=== PATIENT | female | born 1955 | race Caucasian/White ===

== ENCOUNTER 2016-07-10 20:39 | Emergency (ER) | payer MEDICAID ==
[~2016-07-10] VITALS: Ht 157.5 cm; Wt 72.6 kg
[~2016-07-10 20:39] MED LIST: CETI10TA93 PO; NOR10T PO; PHEN100C70 PO
[2016-07-10 21:30] LABS: Basophils # (auto) 0.1 uL; Basophils % (auto) 0.8 % (0.0-2.0); Eosinophils # (auto) 0.2 uL; Eosinophils % (auto) 3.5 % (0.0-7.0); Hematocrit 41.5 % (36.0-46.0); Hemoglobin 13.9 g/dL (12.2-16.2); Lymphocytes # (auto) 2.2 uL; Lymphocytes % (auto) 33.6 % (10.0-50.0); Mean Corpuscular Hemoglobin 30.1 pg (28.0-32.0); Mean Corpuscular Hgb Conc. 33.6 g/dL (32.0-36.0); Mean Corpuscular Volume 89.4 fL (80.0-100.0); Mean Platelet Volume 7.3 fL (7.4-10.4); Monocytes # (auto) 0.6 uL; Monocytes % (auto) 8.9 % (0.0-12.0); Neutrophils # (auto) 3.5 uL; Neutrophils % (auto) 53.2 % (37.0-80.0); Platelet Count (auto) 263 10^3/uL (140-450); Red Cell Distribution Width 14.4 % (11.6-16.0); White Blood Cell 6.6 10^3/uL (4.4-10.8)
[2016-07-10 21:58] LABS: Albumin 3.9 g/dL (3.4-5.0); Alkaline Phosphatase 114 U/L (45-117); Anion Gap 9 (5-15); Aspartate Aminotransferase 18 U/L (15-37); BUN/Creatinine Ratio 13.3; Bilirubin, Total 0.2 mg/dL (0.2-1.0); Blood Urea Nitrogen 12 mg/dL (7-18); Calcium 8.6 mg/dL (8.5-10.1); Carbon Dioxide 28 mmol/L (21-32); Chloride 109 mmol/L (98-107); GFR African American 82 mL/min; GFR Non-African American 67 mL/min; Glucose 99 mg/dL (74-106); Magnesium 2.8 mg/dL (1.6-2.6); Potassium 4.4 mmol/L (3.5-5.1); Sodium 146 mmol/L (136-145); Total Protein 7.9 g/dL (6.4-8.2)
[2016-07-11 05:37] LABS: Urine Bilirubin Negative (Negative); Urine Color Yellow (Yellow); Urine Glucose Normal (Normal); Urine Ketone Negative (Negative); Urine Mucus FEW (None Seen); Urine Nitrite Negative (Negative); Urine RBC 21 /hpf (0 - 4); Urine Squamous Epithelial Cell FEW /hpf (<5); Urine Urobilinogen Normal (Negative)
[2016-07-11 05:49] LABS: Urine Blood 1+ /uL (Negative)
[2016-07-11 06:00] VITALS: BP 107/70
[2016-07-11] MEDS ORDERED: HYDROcodone-ACET 5/325MG TAB PO ONE (06:30)
== END 2016-07-11 07:42 | disposition home or self-care (01) ==
LOC: EDBD 20:39 → ER 20:48
DX: S43.402A Unspecified sprain of left shoulder joint, initial encounter (principal); S16.1XXA Strain of muscle, fascia and tendon at neck level, initial encounter; N39.0 Urinary tract infection, site not specified; R07.89 Other chest pain; Z88.8 Allergy status to other drugs, medicaments and biological substances; Z88.0 Allergy status to penicillin; V49.9XXA Car occupant (driver) (passenger) injured in unspecified traffic accident, initial encounter; Y93.89 Activity, other specified; Y99.8 Other external cause status; Y92.488 Other paved roadways as the place of occurrence of the external cause
CPT/HCPCS: 36415; 71020; 72040; 73030; 80053; 81001; 83735; 84484; 85025; 93005

== ENCOUNTER 2016-07-17 07:03 | Emergency (ER) | payer MEDICAID ==
[~2016-07-17] VITALS: Ht 154.9 cm; Wt 81.6 kg
[2016-07-17 08:40] VITALS: BP 128/77
== END 2016-07-17 09:41 | disposition home or self-care (01) ==
LOC: ER 07:10
DX: M47.812 Spondylosis without myelopathy or radiculopathy, cervical region (principal); Z88.0 Allergy status to penicillin; Z91.011 Allergy to milk products; Z88.8 Allergy status to other drugs, medicaments and biological substances; Z87.442 Personal history of urinary calculi
CPT/HCPCS: 72125

== ENCOUNTER 2016-11-22 18:27 | Inpatient (IN) | payer MEDICAID ==
[~2016-11-22] VITALS: Ht 165.1 cm; Wt 91.9 kg
[2016-11-22] MEDS ORDERED: ACETAMINOPHEN 325 MG TAB PO ONE (18:45)
[2016-11-22 19:03] LABS: Basophils # (auto) 0 uL; Basophils % (auto) 0.2 % (0.0-2.0); CONDITION Y; Eosinophils # (auto) 0 uL; Hematocrit 42.1 % (36.0-46.0); Hemoglobin 14.5 g/dL (12.2-16.2); Lymphocytes # (auto) 1.1 uL; Lymphocytes % (auto) 10.6 % (10.0-50.0); Mean Corpuscular Hemoglobin 31.9 pg (28.0-32.0); Mean Corpuscular Hgb Conc. 34.5 g/dL (32.0-36.0); Mean Corpuscular Volume 92.4 fL (80.0-100.0); Mean Platelet Volume 7.5 fL (7.4-10.4); Monocytes # (auto) 1.2 uL; Monocytes % (auto) 11.7 % (0.0-12.0); Neutrophils # (auto) 7.7 uL; Neutrophils % (auto) 77.5 % (37.0-80.0); Platelet Count (auto) 246 10^3/uL (140-450); Red Cell Distribution Width 14.4 % (11.6-16.0)
[2016-11-22 19:19] LABS: Urine Bilirubin Negative (Negative); Urine Color Yellow (Yellow); Urine Glucose Normal (Normal); Urine Ketone TRACE (Negative); Urine RBC 36 /hpf (0 - 4); Urine Squamous Epithelial Cell FEW /hpf (<5); Urine Urobilinogen Normal (Negative); Urine WBC Clumps PRESENT /hpf (None Seen)
[2016-11-22 19:28] LABS: Urine Blood 2+ /uL (Negative); Urine Nitrite POSITIVE (Negative)
[2016-11-22 19:29] LABS: Albumin 3.8 g/dL (3.4-5.0); Calcium 8.7 mg/dL (8.5-10.1)
[2016-11-22 19:31] LABS: BUN/Creatinine Ratio 15.5; Potassium 4.1 mmol/L (3.5-5.1)
[2016-11-22] MEDS ORDERED: SODIUM CHLORIDE 0.9% 1,000 ML IV ONE ×2 (19:31)
[2016-11-22 19:36] LABS: Bilirubin, Total 0.8 mg/dL (0.2-1.0)
[2016-11-22] MEDS ORDERED: LEVOFLOXACIN 750MG 150 ML IV ONE (19:45)
[2016-11-22] MEDS ORDERED: ENOXAPARIN SOD 40 MG/0.4 ML SYRINGE SC SCH (21:44)
[2016-11-22] MEDS ORDERED: ONDANSETRON HCL 4 MG/2 ML VIAL IV PRN (21:45)
[2016-11-22] MEDS ORDERED: KETOROLAC TROMETH 30 MG/ML 1ML VIAL IV PRN (21:45)
[2016-11-22] MEDS: PHENYTOIN SODIUM 100 MG CAP PO SCH (22:21)
[2016-11-22] MEDS: FAMOTIDINE (10MG/ML) 2ML VL IV SCH (22:21)
[2016-11-22 23:05] VITALS: BP 101/66
[2016-11-23] MEDS: SODIUM CHLORIDE 0.9% 1,000 ML IV SCH ×4 (00:10→21:41)
[2016-11-23] MEDS: ACETAMINOPHEN 500 MG TAB PO PRN ×4 (00:36→21:08)
[2016-11-23 04:54] VITALS: BP 120/56
[2016-11-23 06:12] LABS: Basophils # (auto) 0 uL; Basophils % (auto) 0.3 % (0.0-2.0); CONDITION Y; DEFINITIVE SEE PRINTOUT; Eosinophils # (auto) 0 uL; Hematocrit 40.4 % (36.0-46.0); Hemoglobin 14.1 g/dL (12.2-16.2); Lymphocytes # (auto) 1.4 uL; Lymphocytes % (auto) 13.5 % (10.0-50.0); Mean Corpuscular Hemoglobin 32.5 pg (28.0-32.0); Mean Corpuscular Volume 92.9 fL (80.0-100.0); Mean Platelet Volume 8.2 fL (7.4-10.4); Monocytes # (auto) 1.7 uL; Monocytes % (auto) 16.8 % (0.0-12.0); Neutrophils % (auto) 69.4 % (37.0-80.0); Platelet Count (auto) 141 10^3/uL (140-450); Red Cell Distribution Width 14.2 % (11.6-16.0); White Blood Cell 10.1 10^3/uL (4.4-10.8)
[2016-11-23 06:31] LABS: Calcium 7.8 mg/dL (8.5-10.1); Potassium 4.6 mmol/L (3.5-5.1)
[2016-11-23 06:34] LABS: Bilirubin, Total 0.6 mg/dL (0.2-1.0)
[2016-11-23 08:00] VITALS: BP 114/63
[2016-11-23 08:52] VITALS: BP 114/63
[2016-11-23] MEDS: FAMOTIDINE (10MG/ML) 2ML VL IV SCH ×2 (09:26→21:41)
[2016-11-23] MEDS: PHENYTOIN SODIUM 100 MG CAP PO SCH ×2 (09:26→21:41)
[2016-11-23] MEDS ORDERED: LEVOFLOXACIN 500MG 100 ML IV SCH (10:00)
[2016-11-23] MEDS ORDERED: PROMETHAZINE HCL 25 MG/ML 1ML IV PRN (11:00)
[2016-11-23] MEDS ORDERED: HYDROmorphone HCL 2 MG/ML VL IV PRN (11:00)
[2016-11-23 12:31] VITALS: BP 130/78
[2016-11-23 17:01] VITALS: BP 109/60
[2016-11-23 22:00] VITALS: BP 122/68
[2016-11-24] MEDS: SODIUM CHLORIDE 0.9% 1,000 ML IV SCH ×3 (04:58→20:27)
[2016-11-24 05:00] VITALS: BP 122/71
[2016-11-24 06:04] LABS: Basophils # (auto) 0 uL; Basophils % (auto) 0.3 % (0.0-2.0); CONDITION Y; Eosinophils # (auto) 0 uL; Eosinophils % (auto) 0.1 % (0.0-7.0); Hematocrit 33.5 % (36.0-46.0); Hemoglobin 11.4 g/dL (12.2-16.2); Lymphocytes # (auto) 1.1 uL; Lymphocytes % (auto) 16.1 % (10.0-50.0); Mean Corpuscular Hemoglobin 31.6 pg (28.0-32.0); Mean Corpuscular Hgb Conc. 34.2 g/dL (32.0-36.0); Mean Corpuscular Volume 92.6 fL (80.0-100.0); Mean Platelet Volume 7.6 fL (7.4-10.4); Monocytes % (auto) 14.7 % (0.0-12.0); Neutrophils # (auto) 4.6 uL; Neutrophils % (auto) 68.8 % (37.0-80.0); Platelet Count (auto) 185 10^3/uL (140-450); Red Cell Distribution Width 14.3 % (11.6-16.0); White Blood Cell 6.7 10^3/uL (4.4-10.8)
[2016-11-24 06:13] LABS: INR 1.02 (0.9-1.15); Partial Thromboplastin Time 32.7 sec (22.64-33.71); Prothrombin Time 11.1 sec (9.37-12.3)
[2016-11-24 06:27] LABS: Potassium 3.9 mmol/L (3.5-5.1)
[2016-11-24 06:38] LABS: Albumin 2.6 g/dL (3.4-5.0); BUN/Creatinine Ratio 20.9; Bilirubin, Total 0.3 mg/dL (0.2-1.0); Calcium 7.9 mg/dL (8.5-10.1); Total Protein 6.3 g/dL (6.4-8.2)
[2016-11-24 08:27] VITALS: BP 112/68
[2016-11-24] MEDS: LEVOFLOXACIN 500MG 100 ML IV SCH (10:03)
[2016-11-24] MEDS: PHENYTOIN SODIUM 100 MG CAP PO SCH ×2 (10:03→21:34)
[2016-11-24] MEDS: FAMOTIDINE (10MG/ML) 2ML VL IV SCH ×2 (10:04→21:34)
[2016-11-24 12:32] VITALS: BP 113/74
[2016-11-24 16:59] VITALS: BP 113/61
[2016-11-24] MEDS: ACETAMINOPHEN 500 MG TAB PO PRN (18:58)
[2016-11-24 20:00] VITALS: BP 104/61
[2016-11-24 22:00] VITALS: BP 104/61
[2016-11-25] MEDS: SODIUM CHLORIDE 0.9% 1,000 ML IV SCH ×3 (04:55→21:24)
[2016-11-25 05:42] VITALS: BP 126/80
[2016-11-25 09:00] VITALS: BP 135/89
[2016-11-25] MEDS ORDERED: ONDANSETRON HCL 4 MG/2 ML VIAL ONE (10:23)
[2016-11-25] MEDS ORDERED: fentaNYL CITRATE 100 MCG/2 ML VL ONE (10:23)
[2016-11-25] MEDS ORDERED: MIDAZOLAM HCL 1MG/1ML-2 ML VIAL ONE (10:23)
[2016-11-25] MEDS ORDERED: PROPOFOL 10 MG/ML 20 ML IV ONE ×3 (10:23→12:00)
[2016-11-25] MEDS: FAMOTIDINE (10MG/ML) 2ML VL IV SCH ×2 (11:23→21:24)
[2016-11-25] MEDS: LEVOFLOXACIN 500MG 100 ML IV SCH (11:24)
[2016-11-25] MEDS ORDERED: HYDROmorphone HCL 2 MG/ML VL IV PRN (12:30)
[2016-11-25] MEDS ORDERED: METOCLOPRAMIDE HCL 5MG/ml INJ 2ml VIAL IV ONE (12:30)
[2016-11-25 17:00] VITALS: BP 123/74
[2016-11-25] MEDS: PHENYTOIN SODIUM 100 MG CAP PO SCH ×2 (17:05→21:24)
[2016-11-25 21:30] VITALS: BP 121/78
[2016-11-26 05:00] VITALS: BP 137/81
[2016-11-26] MEDS: SODIUM CHLORIDE 0.9% 1,000 ML IV SCH ×2 (05:44→09:58)
[2016-11-26 09:00] VITALS: BP 130/75
[2016-11-26] MEDS: PHENYTOIN SODIUM 100 MG CAP PO SCH (09:57)
[2016-11-26] MEDS: FAMOTIDINE (10MG/ML) 2ML VL IV SCH ×2 (09:57→10:19)
[2016-11-26] MEDS: LEVOFLOXACIN 500MG 100 ML IV SCH (09:58)
[2016-11-26 11:20] VITALS: BP 130/75
[2016-11-26 12:38] VITALS: BP 155/83
== END 2016-11-26 13:30 | disposition home or self-care (01) | DRG 710 ==
LOC: EDBD 18:27 → ER 18:31 → OVERFLOW 18:32 → WEST WING 23:00
PROVIDERS: ADMIT Family Medicine; ATTEND Internal Medicine
PROC: 0TC68ZZ Extirpation of Matter from Right Ureter, Via Natural or Artificial Opening Endoscopic (ICD-10-PCS; principal; 2016-11-25 10:58)
DX: A41.9 Sepsis, unspecified organism (principal); E43 Unspecified severe protein-calorie malnutrition; G93.41 Metabolic encephalopathy; M41.9 Scoliosis, unspecified; N39.0 Urinary tract infection, site not specified; D64.9 Anemia, unspecified; B96.1 Klebsiella pneumoniae [K. pneumoniae] as the cause of diseases classified elsewhere; G40.909 Epilepsy, unspecified, not intractable, without status epilepticus; I51.7 Cardiomegaly; J98.11 Atelectasis; F32.9 Major depressive disorder, single episode, unspecified; K57.10 Diverticulosis of small intestine without perforation or abscess without bleeding; M43.16 Spondylolisthesis, lumbar region; N13.6 Pyonephrosis; F41.9 Anxiety disorder, unspecified; Z68.33 Body mass index [BMI] 33.0-33.9, adult; Z88.0 Allergy status to penicillin; Z88.8 Allergy status to other drugs, medicaments and biological substances; Z91.011 Allergy to milk products; Z82.49 Family history of ischemic heart disease and other diseases of the circulatory system; Z83.3 Family history of diabetes mellitus; Z87.442 Personal history of urinary calculi
CPT/HCPCS: 36415; 51702; 70450; 71010; 74176; 80053; 81001; 82962; 83605; 85025; 85610; 85730; 87040; 87086; 87088; 87186; 93005; 96361; 96372; 96374; J1956; J2250; J2405; J2704; J3490

== ENCOUNTER 2017-11-18 18:52 | Emergency (ER) | payer MEDICAID ==
[~2017-11-18] VITALS: Ht 154.9 cm; Wt 84.8 kg
[~2017-11-18 18:52] MED LIST changes: -CETI10TA93 PO
[2017-11-18 19:20] VITALS: BP 126/88
== END 2017-11-19 01:23 | disposition left against medical advice (07) ==
LOC: ER 18:52
DX: M25.562 Pain in left knee (principal); Z53.21 Procedure and treatment not carried out due to patient leaving prior to being seen by health care provider
CPT/HCPCS: 73562

== ENCOUNTER 2017-11-27 13:09 | Emergency (ER) | payer MEDICAID ==
[~2017-11-27] VITALS: Ht 154.9 cm; Wt 82.1 kg
[2017-11-27 13:27] VITALS: BP 137/90
== END 2017-11-27 15:00 | disposition home or self-care (01) ==
LOC: ER 13:09
DX: S00.03XA Contusion of scalp, initial encounter (principal); Z88.0 Allergy status to penicillin; Z91.011 Allergy to milk products; X58.XXXA Exposure to other specified factors, initial encounter; Y93.89 Activity, other specified; Y99.8 Other external cause status; Y92.89 Other specified places as the place of occurrence of the external cause

== ENCOUNTER 2017-12-15 17:05 | Emergency (ER) | payer MEDICAID ==
[~2017-12-15] VITALS: Ht 154.9 cm; Wt 82.1 kg
[2017-12-15 17:30] VITALS: BP 128/80
[2017-12-15] MEDS ORDERED: CLINDAMYCIN 600 MG/4 ML VL IM ONE (19:15)
== END 2017-12-15 19:56 | disposition home or self-care (01) ==
LOC: ER 17:14
DX: L02.811 Cutaneous abscess of head [any part, except face] (principal); J45.909 Unspecified asthma, uncomplicated; Z87.891 Personal history of nicotine dependence; Z88.0 Allergy status to penicillin; Z88.1 Allergy status to other antibiotic agents; Z91.011 Allergy to milk products; Z87.442 Personal history of urinary calculi

== ENCOUNTER 2018-03-20 22:38 | Emergency (ER) | payer MEDICAID ==
[~2018-03-20] VITALS: Ht 154.9 cm; Wt 84.8 kg
[2018-03-20 23:39] LABS: Basophils # (auto) 0 uL; Basophils % (auto) 0.7 % (0.0-2.0); Eosinophils # (auto) 0.4 uL; Eosinophils % (auto) 5.7 % (0.0-7.0); Hematocrit 41.9 % (36.0-46.0); Hemoglobin 14.3 g/dL (12.2-16.2); Lymphocytes % (auto) 47.6 % (10.0-50.0); Mean Corpuscular Hemoglobin 31.1 pg (28.0-32.0); Mean Corpuscular Hgb Conc. 34.1 g/dL (32.0-36.0); Monocytes # (auto) 0.7 uL; Monocytes % (auto) 10.5 % (0.0-12.0); Neutrophils # (auto) 2.3 uL; Neutrophils % (auto) 35.5 % (37.0-80.0); Nucleated Red Blood Cells % 0.1 %; Platelet Count (auto) 214 10^3/uL (140-450); Red Cell Distribution Width 14.1 % (11.8-14.3); White Blood Cell 6.3 10^3/uL (4.4-10.8)
[2018-03-20 23:53] LABS: Alanine Aminotransferase 26 U/L (13-56); Albumin 3.8 g/dL (3.4-5.0); Anion Gap 10 (5-15); Aspartate Aminotransferase 21 U/L (15-37); Calcium 8.5 mg/dL (8.5-10.1); Carbon Dioxide 24 mmol/L (21-32); Chloride 109 mmol/L (98-107); GFR African American 89 mL/min; GFR Non-African American 74 mL/min; Glucose 108 mg/dL (74-106); Magnesium 2.6 mg/dL (1.6-2.6); Potassium 3.7 mmol/L (3.5-5.1); Sodium 143 mmol/L (136-145)
[2018-03-20 23:58] LABS: Alkaline Phosphatase 110 U/L (45-117); BUN/Creatinine Ratio 15.7; Bilirubin, Total 0.2 mg/dL (0.2-1.0); Blood Urea Nitrogen 13 mg/dL (7-18); Total Protein 8.1 g/dL (6.4-8.2)
[2018-03-21] MEDS ORDERED: IPRATROPIUM BROM 0.5 MG/2.5ML INH SOL NEB ONE
[2018-03-21] MEDS ORDERED: methylPREDNISolone SOD SUCC 125 MG/2 ML VL IV ONE
[2018-03-21] MEDS ORDERED: PROMETHAZINE W/CODEINE 5 ML ORAL SYRUP PO ONE
[2018-03-21] MEDS ORDERED: ALBUTEROL SULF 2.5 MG/0.5ML(0.5%) NEB SOLN NEB ONE
[2018-03-21] MEDS ORDERED: SODIUM CHLORIDE 0.9% 1,000 ML IV ONE (01:00)
[2018-03-21] MEDS ORDERED: LEVOFLOXACIN 750MG 150 ML IV ONE (01:00)
[2018-03-21 03:06] VITALS: BP 96/58
== END 2018-03-21 03:10 | disposition home or self-care (01) ==
LOC: ER 22:38
DX: J44.1 Chronic obstructive pulmonary disease with (acute) exacerbation (principal); Z87.442 Personal history of urinary calculi; Z90.89 Acquired absence of other organs; Z87.891 Personal history of nicotine dependence
CPT/HCPCS: 36415; 71045; 80053; 83735; 84484; 85025; 93005; 94640; 96365; 96366; 96375; 99284; J1956; J2930; J7611; J7644

== ENCOUNTER 2020-08-17 15:27 | Emergency (ER) | payer OTHER, MEDICAID ==
[~2020-08-17] VITALS: Ht 160 cm; Wt 83.5 kg
[~2020-08-17 15:27] MED LIST changes: +PHEN100C PO; -PHEN100C70 PO
[2020-08-17 17:04] VITALS: BP 130/87
== END 2020-08-17 17:11 | disposition home or self-care (01) ==
LOC: ER 15:27
DX: S83.8X2A Sprain of other specified parts of left knee, initial encounter (principal); F41.9 Anxiety disorder, unspecified; J45.909 Unspecified asthma, uncomplicated; F32.9 Major depressive disorder, single episode, unspecified; Z88.7 Allergy status to serum and vaccine; Z91.011 Allergy to milk products; Z88.0 Allergy status to penicillin; Z88.2 Allergy status to sulfonamides; Z88.8 Allergy status to other drugs, medicaments and biological substances; Z79.899 Other long term (current) drug therapy; Z87.442 Personal history of urinary calculi; W18.39XA Other fall on same level, initial encounter; Y93.89 Activity, other specified; Y92.89 Other specified places as the place of occurrence of the external cause; Y99.8 Other external cause status
CPT/HCPCS: 73502; 73562

== ENCOUNTER 2020-12-20 01:06 | Emergency (ER) | payer OTHER, MEDICAID ==
[~2020-12-20] VITALS: Ht 160 cm; Wt 84.8 kg
[2020-12-20 03:50] VITALS: BP 165/94
== END 2020-12-20 03:54 | disposition home or self-care (01) ==
LOC: ER 01:06
DX: K02.9 Dental caries, unspecified (principal); J45.909 Unspecified asthma, uncomplicated; Z90.89 Acquired absence of other organs; Z87.891 Personal history of nicotine dependence; Z79.899 Other long term (current) drug therapy; Z88.0 Allergy status to penicillin; Z88.2 Allergy status to sulfonamides; Z88.7 Allergy status to serum and vaccine; Z88.8 Allergy status to other drugs, medicaments and biological substances; Z91.011 Allergy to milk products

== ENCOUNTER 2021-08-02 14:29 | Emergency (ER) | payer OTHER, MEDICAID ==
[~2021-08-02] VITALS: Ht 154.9 cm; Wt 87.1 kg
[2021-08-02] MEDS ORDERED: methylPREDNISolone SOD SUCC 125 MG/2 ML VL IM ONE (16:00)
[2021-08-02] MEDS ORDERED: cefTRIAXone SOD 1,000 MG VL IM ONE (16:00)
[2021-08-02] MEDS ORDERED: IPRATROPIUM BROM 0.5 MG/2.5ML INH SOL NEB ONE (16:00)
[2021-08-02] MEDS ORDERED: ALBUTEROL SULF 2.5 MG/0.5ML(0.5%) NEB SOLN NEB ONE (16:00)
[2021-08-02] MEDS ORDERED: PRED20TA2 PO (16:22)
[2021-08-02] MEDS ORDERED: LEVO500T31 PO (16:22)
[2021-08-02] MEDS ORDERED: ALBU108A5 IN (16:22)
[2021-08-02 16:23] VITALS: BP 133/76
== END 2021-08-02 16:30 | disposition home or self-care (01) ==
LOC: ER 14:29
DX: J45.901 Unspecified asthma with (acute) exacerbation (principal); J03.90 Acute tonsillitis, unspecified; F41.9 Anxiety disorder, unspecified; F32.9 Major depressive disorder, single episode, unspecified; Z87.442 Personal history of urinary calculi; Z87.891 Personal history of nicotine dependence
CPT/HCPCS: 71046; 94640; 99283; J0696; J2930; J7644

== ENCOUNTER 2021-11-28 09:16 | Emergency (ER) | payer MEDICARE, MEDICAID ==
[~2021-11-28] VITALS: Ht 121.9 cm; Wt 86.7 kg
[~2021-11-28 09:16] MED LIST changes: +ALBU108A5 IN; +LEVO500T31 PO; +PRED20TA2 PO
[2021-11-28 10:04] VITALS: BP 116/74
[2021-11-28] MEDS ORDERED: AMOX-277 PO (10:14)
== END 2021-11-28 10:54 | disposition home or self-care (01) ==
LOC: ER 09:16
DX: H66.91 Otitis media, unspecified, right ear (principal); J45.909 Unspecified asthma, uncomplicated; Z87.891 Personal history of nicotine dependence; Z87.442 Personal history of urinary calculi; Z88.0 Allergy status to penicillin; Z88.2 Allergy status to sulfonamides; Z88.8 Allergy status to other drugs, medicaments and biological substances

== ENCOUNTER 2023-01-03 21:13 | Emergency (ER) | payer MEDICARE, MEDICAID ==
[~2023-01-03] VITALS: Ht 154.9 cm; Wt 82.2 kg
[~2023-01-03 21:13] MED LIST changes: +AMOX875T4 PO
[2023-01-03 23:30] VITALS: BP 144/91; PULSE 83; RESP 16; TEMP 99.5; O2SAT 95
[2023-01-03 23:30] LABS: Rapid Strep A Screen-Throat Negative
[2023-01-03 23:30] LABS: COVID19 ANTIGEN SOFIA FIA NEGATIVE (NEGATIVE)
[2023-01-03 23:31] LABS: Rapid Influenza A Negative (Negative); Rapid Influenza B Negative (Negative)
== END 2023-01-04 00:04 | disposition left against medical advice (07) ==
LOC: ER 21:13
DX: J06.9 Acute upper respiratory infection, unspecified (principal); R51.9 Headache, unspecified; J44.9 Chronic obstructive pulmonary disease, unspecified; I25.2 Old myocardial infarction; Z87.891 Personal history of nicotine dependence; Z20.822 Contact with and (suspected) exposure to COVID-19
CPT/HCPCS: 36415; 71045; 87070; 87426; 87804; 87880

== ENCOUNTER 2023-06-12 18:00 | Emergency (ER) | payer MEDICARE, MEDICAID, OTHER ==
[~2023-06-12] VITALS: Ht 154.9 cm; Wt 88.2 kg
[2023-06-12] MEDS: KETOROLAC TROMETH 60MG/2ML VIAL IM ONE (19:03)
[2023-06-12] MEDS ORDERED: IBUP-1455 PO (19:54)
[2023-06-12 20:25] VITALS: BP 145/87; PULSE 61; RESP 18; TEMP 97.5; O2SAT 98
== END 2023-06-12 20:24 | disposition home or self-care (01) ==
LOC: ER 18:00
DX: S16.1XXA Strain of muscle, fascia and tendon at neck level, initial encounter (principal); R51.9 Headache, unspecified; J44.9 Chronic obstructive pulmonary disease, unspecified; I25.2 Old myocardial infarction; Z90.89 Acquired absence of other organs; Z87.891 Personal history of nicotine dependence; Z79.2 Long term (current) use of antibiotics; Z79.899 Other long term (current) drug therapy; Z88.0 Allergy status to penicillin; Z88.2 Allergy status to sulfonamides; Z88.8 Allergy status to other drugs, medicaments and biological substances; Z91.011 Allergy to milk products; V43.52XA Car driver injured in collision with other type car in traffic accident, initial encounter; Y93.89 Activity, other specified; Y92.89 Other specified places as the place of occurrence of the external cause; Y99.8 Other external cause status
CPT/HCPCS: 72040; 96372; 99283; J1885

== ENCOUNTER 2023-06-24 19:30 | Emergency (ER) | payer MEDICARE, MEDICAID, OTHER ==
[~2023-06-24] VITALS: Ht 154.9 cm; Wt 87.6 kg
[~2023-06-24 19:30] MED LIST changes: +IBUP-1455 PO
[2023-06-24 22:38] VITALS: BP 142/90; RESP 20; TEMP 98.2; O2SAT 98
[2023-06-24 22:44] LABS: Basophils # (auto) 0.1 10 ^3/uL (0-0.2); Eosinophils # (auto) 0.2 10 ^3/uL (0-0.8); Eosinophils % (auto) 2.7 % (0.0-7.0); Hematocrit 40.3 % (36.0-46.0); Hemoglobin 13.4 g/dL (12.2-16.2); Lymphocytes # (auto) 2.1 10 ^3/uL (0.4-5.4); Lymphocytes % (auto) 35.5 % (10.0-50.0); Mean Corpuscular Hemoglobin 29.4 pg (28.0-32.0); Mean Corpuscular Hgb Conc. 33.2 g/dL (32.0-36.0); Mean Corpuscular Volume 88.6 fL (80.0-100.0); Monocytes # (auto) 0.5 10 ^3/uL (0-1.3); Monocytes % (auto) 8.7 % (0.0-12.0); Neutrophils # (auto) 3.1 10 ^3/uL (1.6-8.6); Neutrophils % (auto) 52.1 % (37.0-80.0); Nucleated Red Blood Cells % 0.1 %; Red Blood Cells 4.55 10^6/uL (4.0-5.20); Red Cell Distribution Width 15.1 % (11.8-14.3)
[2023-06-24 22:45] VITALS: PULSE 64
[2023-06-24 22:54] LABS: Anion Gap 8 (5-15); Calcium 9.5 mg/dL (8.7-10.4); Carbon Dioxide 25 mmol/L (20-30); Chloride 106 mmol/L (98-107); Potassium 3.9 mmol/L (3.5-5.1); Sodium 139 mmol/L (136-145)
[2023-06-24] MEDS: MECLIZINE HCL 25 MG TAB PO ONE (22:54)
[2023-06-24] MEDS: SODIUM CHLORIDE 0.9% 1,000 ML IV ONE (22:56)
[2023-06-24 23:00] LABS: BUN/Creatinine Ratio 10.4 (10.0-20.0); Blood Urea Nitrogen 8 mg/dL (9-23); Glucose 90 mg/dL (74-106)
[2023-06-24 23:39] LABS: Urine Bacteria FEW /hpf (None Seen); Urine Blood Negative /uL (Negative); Urine Clarity HAZY (Clear); Urine Color Yellow (Yellow); Urine Protein, UAD Negative (Negative); Urine Specific Gravity 1.017 (1.001-1.035); Urine Urobilinogen Normal (Negative); Urine WBC 34 /hpf (0 - 5)
[2023-06-24 23:51] LABS: Amphetamine Screen, Urine Neg (NEGATIVE); Barbiturate Scree,Urine Neg (NEGATIVE); Benzodiazephine Screen, Urine Neg (NEGATIVE); Cannabinoid Screen, Urine Neg (NEGATIVE); Cocaine Screen, Urine Neg (NEGATIVE); Opiate Scree,Urine Neg (NEGATIVE); Phencyclidine Screen, Urine Neg (NEGATIVE)
[2023-06-25] MEDS: cefTRIAXone SOD 1,000 MG VL IM ONE (00:16)
[2023-06-25] MEDS: ONDANSETRON ODT 4 MG TAB PO ONE (00:36)
[2023-06-25] MEDS: HYDROcodone-ACET 5/325MG TAB PO ONE (00:36)
[2023-06-25] MEDS ORDERED: CIPR500T4 PO (00:40)
[2023-06-25] MEDS ORDERED: MECL1TAB31 PO (00:40)
== END 2023-06-25 00:45 | disposition home or self-care (01) ==
LOC: ER 19:30
DX: S16.1XXA Strain of muscle, fascia and tendon at neck level, initial encounter (principal); S29.012A Strain of muscle and tendon of back wall of thorax, initial encounter; R51.9 Headache, unspecified; R42 Dizziness and giddiness; N39.0 Urinary tract infection, site not specified; Z88.0 Allergy status to penicillin; Z88.2 Allergy status to sulfonamides; Z91.011 Allergy to milk products; Z87.891 Personal history of nicotine dependence; V43.52XA Car driver injured in collision with other type car in traffic accident, initial encounter; Y93.89 Activity, other specified; Y92.488 Other paved roadways as the place of occurrence of the external cause; Y99.8 Other external cause status
CPT/HCPCS: 36415; 70450; 71045; 72070; 72125; 80048; 80307; 81001; 84484; 85025; 93005; 99285; J0696; J8597; Q0162

== ENCOUNTER 2023-07-21 10:20 | Emergency (ER) | payer MEDICARE, MEDICAID ==
[~2023-07-21] VITALS: Ht 154.9 cm; Wt 85.6 kg
[~2023-07-21 10:20] MED LIST changes: +CIPR500T4 PO; +MECL12.586 PO; +[UNRECOGNIZED DRUG - CODE] PO
[2023-07-21] MEDS ORDERED: LORA-483 PO (11:33)
[2023-07-21] MEDS ORDERED: BENZ200C64 PO (11:33)
[2023-07-21] MEDS ORDERED: DOXY-286 PO (11:33)
[2023-07-21 11:36] VITALS: BP 136/77; PULSE 78; RESP 16; TEMP 98.3; O2SAT 95
== END 2023-07-21 11:40 | disposition home or self-care (01) ==
LOC: ER 10:20
DX: J20.9 Acute bronchitis, unspecified (principal); J44.9 Chronic obstructive pulmonary disease, unspecified; I10 Essential (primary) hypertension; Z87.891 Personal history of nicotine dependence

== ENCOUNTER 2023-10-11 06:07 | Emergency (ER) | payer MEDICARE, MEDICAID ==
[~2023-10-11] VITALS: Ht 154.9 cm; Wt 83.1 kg
[~2023-10-11 06:07] MED LIST changes: +BENZ200C64 PO; +DOXY-286 PO; +LORA-483 PO
[2023-10-11 11:17] VITALS: BP 145/88; PULSE 68; RESP 16; O2SAT 99
[2023-10-11] MEDS: KETOROLAC TROMETH 60MG/2ML VIAL IM ONE (11:36)
[2023-10-11 11:43] VITALS: TEMP 98
[2023-10-11] MEDS: ACETAMINOPHEN 500 MG TAB PO ONE (11:43)
== END 2023-10-11 12:50 | disposition left against medical advice (07) ==
LOC: ER 06:07
DX: S83.92XA Sprain of unspecified site of left knee, initial encounter (principal); S83.8X1A Sprain of other specified parts of right knee, initial encounter; J44.9 Chronic obstructive pulmonary disease, unspecified; I10 Essential (primary) hypertension; Z88.0 Allergy status to penicillin; Z88.2 Allergy status to sulfonamides; Z88.7 Allergy status to serum and vaccine; Z91.011 Allergy to milk products; W18.09XA Striking against other object with subsequent fall, initial encounter; Y93.89 Activity, other specified; Y92.89 Other specified places as the place of occurrence of the external cause; Y99.8 Other external cause status
CPT/HCPCS: 73562; 96372; 99283; J1885

== ENCOUNTER 2024-01-01 08:40 | Emergency (ER) | payer MEDICARE, MEDICAID ==
[~2024-01-01] VITALS: Ht 154.9 cm; Wt 84.0 kg
[2024-01-01 09:18] VITALS: BP 120/76; PULSE 92; RESP 16; TEMP 98.1; O2SAT 97
[2024-01-01] MEDS ORDERED: PROM1SOL4 PO (09:29)
[2024-01-01] MEDS ORDERED: LEVO500T91 PO (09:29)
== END 2024-01-01 09:43 | disposition home or self-care (01) ==
LOC: ER 08:40
DX: J20.9 Acute bronchitis, unspecified (principal); J44.0 Chronic obstructive pulmonary disease with (acute) lower respiratory infection; Z88.0 Allergy status to penicillin; Z88.2 Allergy status to sulfonamides; Z91.011 Allergy to milk products
CPT/HCPCS: 71046